=== PATIENT | male | born 1990 | race Caucasian/White ===

== ENCOUNTER 2018-06-25 18:12 | Emergency (ER) | payer OTHER ==
[2018-06-25] MEDS: IBUPROFEN 800 MG TAB PO (19:24)
[2018-06-25] MEDS: ACETAMINOPHEN 325 MG TAB PO (19:24)
== END 2018-06-25 19:32 | disposition home or self-care (01) ==
LOC: M ED 18:12
DX: S06.0X0A Concussion without loss of consciousness, initial encounter (principal); S83.91XA Sprain of unspecified site of right knee, initial encounter; W00.0XXA Fall on same level due to ice and snow, initial encounter; Y92.018 Other place in single-family (private) house as the place of occurrence of the external cause; F17.210 Nicotine dependence, cigarettes, uncomplicated
CPT/HCPCS: 73564

== ENCOUNTER 2019-01-03 07:09 | Emergency (ER) | payer OTHER ==
[~2019-01-03] VITALS: Ht 167.6 cm; Wt 95.2 kg
[~2019-01-03 07:09] MED LIST: BACI500O8 TOP; IBUP80TA PO
[2019-01-03] MEDS ORDERED: BENZONATATE 100 MG CAP PO ONE (08:00)
[2019-01-03] MEDS ORDERED: NS 1,000 ML IV ONE (08:00)
[2019-01-03 08:14] LABS: BASO % 0.2 % (0.0-1.0); EOS # 0.3 10^3/uL (0.0-0.50); EOS % 2.9 % (0.0-3.0); HEMATOCRIT 45.2 % (42.0-52.0); HEMOGLOBIN 15.6 g/dl (13.5-17.5); LYMPH # 1.3 10^3/uL (1.5-6.5); LYMPH % 14.5 % (24.0-44.0); MEAN CORPUSCULAR HEMOGLOBIN 32.6 pg (27.0-33.0); MEAN CORPUSCULAR HGB CONC 34.5 g/dl (32.0-36.5); MEAN CORPUSCULAR VOLUME 94.4 fl (80.0-96.0); MONO # 0.6 10^3/uL (0.0-0.8); MONO % 6.7 % (0.0-5.0); NEUTROPHILS % 75.5 % (36.0-66.0); PLATELET COUNT, AUTOMATED 159 10^3/uL (150-450); RED BLOOD COUNT 4.79 10^6/uL (4.30-6.10); WHITE BLOOD COUNT 9.3 10^3/uL (4.0-10.0)
--- NOTE | 2019-01-03 08:31 | REP ---
Clinical: lower chest and abdominal pain . Comparison: None . Technique: PA and lateral. Findings: The mediastinum and cardiac silhouette are normal. The lung lira are clear and without acute consolidation, effusion, or pneumothorax. The skeletal structures are intact and normal. Impression: 1. No acute cardiopulmonary process. Electronically Signed by Rohith Tipton MD 01/03/2019 08:22 A
[2019-01-03 08:36] LABS: ALBUMIN 3.9 GM/DL (3.2-5.2); ALT/SGPT 58 U/L (12-78); BILIRUBIN,DIRECT < 0.1 MG/DL (0.0-0.2); BILIRUBIN,TOTAL 0.3 MG/DL (0.2-1.0); BLOOD UREA NITROGEN 12 MG/DL (7-18); CALCIUM LEVEL 9.3 MG/DL (8.5-10.1); CARBON DIOXIDE LEVEL 30 MEQ/L (21-32); CHLORIDE LEVEL 106 MEQ/L (98-107); CK-MB VALUE MASS 1.3 NG/ML (<3.6); CPK CREATINE PHOSPHOKINASE 344 U/L (39-308); CREATININE FOR GFR 1.15 MG/DL (0.70-1.30); GLOMERULAR FILTRATION RATE > 60.0 (>60); GLUCOSE, FASTING 93 MG/DL (70-100); LIPASE 82 U/L (73-393); MB/CK RELATIVE INDEX 0.38 (< OR =4); SODIUM LEVEL 141 MEQ/L (136-145); TOTAL PROTEIN 7.7 GM/DL (6.4-8.2); TROPONIN I < 0.02 NG/ML (< 0.10)
[2019-01-03] MEDS ORDERED: PROV108A INH (09:37)
[2019-01-03] MEDS ORDERED: TESS100C PO (09:37)
[2019-01-03 09:44] VITALS: BP 138/76
--- NOTE | 2019-01-03 21:39 | ECGEPIP ---
[facility] - ED Test Date: 2019-01-03 Pat Name: ADALI BOLAND Department: Room: - Gender: Male Riveter: JCeleste : 1990 Requested By: TOÑITO Joseph PA-C Order Number: [id number] Reading MD: Vanessa Bar Measurements Intervals [place] Rate: 83 P: 62 NE: 144 QRS: 29 QRSD: 84 T: 7 QT: 348 QTc: 411 Interpretive Statements SINUS RHYTHM NO PRIOR Electronically Signed on 01-03-2019 21:38:48 EDT by Vanessa Bar
== END 2019-01-03 09:52 | disposition home or self-care (01) ==
LOC: M ED 07:09
DX: M94.0 Chondrocostal junction syndrome [Tietze] (principal); F17.210 Nicotine dependence, cigarettes, uncomplicated